=== PATIENT | female | born 1975 | race Caucasian/White ===

== ENCOUNTER → 2023-11-24 | Day surgery (SDC) | payer BC ==
[~2023-11-24] MED LIST: Flumazenil 0.1 MG/ML 10 ML MDV ONE; Ketamine 200 MG/20 ML MDV ONE; Midazolam 1 MG/ML 2 ML SDV ONE; Propofol 200 MG/20 ML SDV ONE; fentaNYL 50 MCG/ML SDV ONE
[2023-11-24] MEDS: Lactated Ringers 1,000 ML IV SCH (09:50)
== END ==
LOC: CC.SDS 09:33
PROVIDERS: ATTEND Family Medicine
DX: Z12.11 Encounter for screening for malignant neoplasm of colon (principal); D17.79 Benign lipomatous neoplasm of other sites; K63.5 Polyp of colon; Z86.010 Personal history of colon polyps; Q43.8 Other specified congenital malformations of intestine; G56.03 Carpal tunnel syndrome, bilateral upper limbs; F17.200 Nicotine dependence, unspecified, uncomplicated; Z98.890 Other specified postprocedural states
CPT/HCPCS: 00811; J2250; J2704; J3010; J3490; J7120